=== PATIENT | male | born 1995 | race Hispanic/Latino ===

== ENCOUNTER 2022-04-15 21:41 | Emergency (ER) | payer OTHER ==
[~2022-04-15] VITALS: Ht 162.6 cm; Wt 72.6 kg
[2022-04-15] MEDS ORDERED: IBUPROFEN 600 MG TAB ONE (22:25)
== END 2022-04-15 23:05 | disposition home or self-care (01) ==
LOC: FSED 21:45
DX: S61.211A Laceration without foreign body of left index finger without damage to nail, initial encounter (principal); W25.XXXA Contact with sharp glass, initial encounter; Y99.0 Civilian activity done for income or pay
CPT/HCPCS: 99282

== ENCOUNTER 2022-04-25 16:26 | Emergency (ER) | payer OTHER ==
[~2022-04-25] VITALS: Ht 162.6 cm; Wt 72.6 kg
== END 2022-04-25 16:58 | disposition home or self-care (01) ==
LOC: FSED 16:30
DX: Z48.00 Encounter for change or removal of nonsurgical wound dressing (principal)
CPT/HCPCS: 99282